=== PATIENT | male | born 1995 | race Caucasian/White ===

== ENCOUNTER 2017-02-01 19:29 | Emergency (ER) | payer BC, OTHER ==
[~2017-02-01] VITALS: Ht 185.4 cm; Wt 57.4 kg
[2017-02-01] MEDS ORDERED: PREDNISONE20 MG PO (20:35)
[2017-02-01] MEDS ORDERED: EPIPEN ADU0.3 MG/0.3 IM (20:35)
[2017-02-01] MEDS ORDERED: PEPCID20 MG PO (20:35)
[2017-02-01 21:26] VITALS: BP 00/00
== END 2017-02-01 21:27 | disposition home or self-care (01) ==
LOC: EME 19:29
DX: T63.441A Toxic effect of venom of bees, accidental (unintentional), initial encounter (principal); Z91.030 Bee allergy status; F17.200 Nicotine dependence, unspecified, uncomplicated
CPT/HCPCS: 99281; 99284; J7512